=== PATIENT | male | born 1945 ===

== ENCOUNTER 2023-03-08 09:39 | Inpatient (IN) | payer OTHER ==
[~2023-03-08] VITALS: Ht 176.5 cm; Wt 74.4 kg
[2023-03-09] MEDS ORDERED: PROAIR RESPICL90 MCG IH (11:29)
[2023-03-09] MEDS ORDERED: WIXELA 500-501 EACH IH (11:29)
[2023-03-09] MEDS ORDERED: UROXATRAL10 MG PO (11:30)
[2023-03-09] MEDS ORDERED: AVODART0.5 MG PO (11:30)
[2023-03-09] MEDS ORDERED: CIALIS5 MG PO (11:31)
[2023-03-15] MEDS ORDERED: PANTOPRAZOLE SO40 MG (07:54)
[2023-03-18] MEDS ORDERED: NEURONTIN300 MG PO (11:13)
[2023-03-18] MEDS ORDERED: TAMS0.4C PO (11:13)
[2023-03-18] MEDS ORDERED: ACETAMINOPHEN500 M2 PO (11:13)
== END 2023-03-18 12:28 | disposition home or self-care (01) | DRG 330 ==
LOC: O/R 03-15 05:30 → SURH 03-15 05:30 → SURG 03-15 07:00 → SURH 03-15 13:37
PROVIDERS: Internal Medicine Geriatric Medicine; ADMIT Surgery; ATTEND Surgery
PROC: 07BB4ZZ Excision of Mesenteric Lymphatic, Percutaneous Endoscopic Approach (ICD-10-PCS; 2023-03-15)
PROC: 0DTF4ZZ Resection of Right Large Intestine, Percutaneous Endoscopic Approach (ICD-10-PCS; principal; 2023-03-15 07:00)
DX: D12.2 Benign neoplasm of ascending colon (principal); K62.5 Hemorrhage of anus and rectum; R59.0 Localized enlarged lymph nodes; J44.9 Chronic obstructive pulmonary disease, unspecified; Z20.822 Contact with and (suspected) exposure to COVID-19; N40.0 Benign prostatic hyperplasia without lower urinary tract symptoms